=== PATIENT | male | born 1960 | race Caucasian/White ===

== ENCOUNTER 2023-06-10 21:57 | Emergency (ER) | payer BC ==
[~2023-06-10] VITALS: Ht 172.7 cm; Wt 84.1 kg
[~2023-06-10 21:57] MED LIST: NORCO 325 MG-7.1 TAB PO
[2023-06-10 22:06] VITALS: TEMP 98
[2023-06-10] MEDS ORDERED: Mag/Al Hydrox/Simeth Susp 30 ML CUP PO ONE (22:45)
[2023-06-10] MEDS ORDERED: Albuterol/Ipratropium 3 MG-0.5 MG/3 ML Neb Soln IH ONE (22:45)
[2023-06-10] MEDS ORDERED: NS 500 ML IV ONE (22:45)
[2023-06-10 22:49] LABS: BASO # 0.1 K/mm3 (0.0-0.2); BASO % 0.7 % (0.0-2.0); EOS # 0.6 K/mm3 (0.0-0.7); EOS % 6.1 % (0.0-4.0); GRAN # 5.9 K/mm3 (1.4-6.5); GRAN % 58.4 % (42.2-75.2); HEMATOCRIT 42.7 % (42.0-52.0); HEMOGLOBIN 14.9 g/dl (13.5-18.0); LYMPH # 2.7 K/mm3 (1.2-3.4); LYMPH % 26.3 % (20.0-51.0); MEAN CELL VOLUME 88 fl (80.0-100.0); MEAN CORPUSCULAR HEMOGLOBIN 31 pg (27-31); MEAN CORPUSCULAR HGB CONC 35 g/dl (33.0-37.0); MEAN PLATELET VOLUME 9.6 fl (7.4-10.4); MONO # 0.8 K/mm3 (0.1-0.6); MONO % 8.1 % (1.7-9.3); PLATELET COUNT 292 K/mm3 (130-400); RED BLOOD COUNT 4.83 M/mm3 (4.20-5.60)
[2023-06-10 23:04] LABS: ALANINE AMINOTRANSFERASE 18 U/L (0-55); ALBUMIN 3.4 gm/dL (3.4-4.8); ALKALINE PHOSPHATASE 119 U/L (40-150); ANION GAP 10 mmol/L (7-16); AST,SGOT 15 U/L (5-34); BILIRUBIN,TOTAL 0.3 mg/dL (0.2-1.2); BLOOD UREA NITROGEN 15 mg/dL (8-26); CARBON DIOXIDE 26 mmol/L (23-31); CHLORIDE 104 mmol/L (98-107); CREATININE, serum 0.91 mg/dL (0.72-1.25); GLUCOSE 134 mg/dL (70-99); POTASSIUM 3.6 mmol/L (3.5-4.5); SODIUM 140 mmol/L (136-145); TOTAL PROTEIN 6.8 gm/dL (6.2-8.1)
[2023-06-10 23:05] LABS: PROTHROMBIN TIME 11.3 SECONDS (9.7-12.8)
[2023-06-10 23:08] LABS: PARTIAL THROMBOPLASTIN TIME 36.8 SECONDS (26.0-37.0)
[2023-06-10 23:10] LABS: D-DIMER < 200.00 ng/mLDDu (200-230); TROPONIN-I < 0.010 ng/mL (0.00-0.033)
[2023-06-11] MEDS ORDERED: PRIL40 PO (02:25)
[2023-06-11 02:52] VITALS: BP 155/91; PULSE 78
== END 2023-06-11 02:53 | disposition home or self-care (01) ==
LOC: COL.ER 21:57
PROVIDERS: Internal Medicine
DX: K21.00 Gastro-esophageal reflux disease with esophagitis, without bleeding (principal)
CPT/HCPCS: J7040